=== PATIENT | female | born 1980 | race Caucasian/White ===

== ENCOUNTER 2017-01-02 11:59 | Emergency (ER) | payer MEDICAID, OTHER ==
[~2017-01-02] VITALS: Ht 170.2 cm; Wt 55.0 kg
[~2017-01-02 11:59] MED LIST: NAPR500 PO; NORE5TAB PO; ONDA4TAB7 PO; ORTH0.35 PO; PROT10TA PO
[2017-01-02 12:01] VITALS: BP 128/64; PULSE 118; RESP 24; TEMP 98.3; O2SAT 98
[2017-01-02 12:10] VITALS: BP 149/90; PULSE 110; RESP 16; O2SAT 98
[2017-01-02] MEDS ORDERED: SODIUM CHLOR 0.9% 1000 ML INJ 1,000 ML IV SCH (12:17)
[2017-01-02 12:20] VITALS: RESP 16; O2SAT 98
--- NOTE | 2017-01-02 12:24 | PD ---
HPI Chief Complaint: Abdominal Pain Time Seen by Provider: 12:06 Travel History International Travel<30 days: No Contact w/Intl Traveler<30days: No Traveled to known affect area: No History of Present Illness HPI 36yo F with PMH of guillain barre, endometriosis presents to the ED with c/o left sided abdominal pain for 3 days. States it radiates to periumbilical region. Had nausea but not vomiting. +Chills. Denies any fever, chest pain, sob, vomiting, vaginal discharge, vaginal bleeding, urinary complaints or diarrhea. Last BM was this morning, normal. PSH include appendectomy, laparoscopy, . PFSH Past Medical History Bipolar Disorder: Yes Anxiety: Yes Cardiovascular Problems: Yes (MVP) Diminished Hearing: No Gastrointestinal Disorders: Yes GERD: Yes Genitourinary: Yes (ENDOMETRIOSIS WITH ADHESIONS) Insomnia: Yes Kidney Stones: Yes Tetanus Vaccination: Unknown Influenza Vaccination: No ?: Not LMP: NOV 2016 : 4 Para: 2 : 2 Tubal Ligation: Yes Past Surgical History Abdominal Surgery: Yes (EXP LAP) Appendectomy: Yes Section: Yes (X2) Other Surgery: Yes (abd. LAPOROSCOPy/otomy ) Social History Alcohol Use: No Tobacco Use: Yes (1/2 PPD) Substance Use: Yes (marijuana) Allergies-Medications (Allergen,Severity, Reaction): Coded Allergies: Bactrim (Verified Allergy, Severe, Nausea/Vomiting, 01/02/17) Penicillin (Verified Allergy, Unknown, 01/02/17) Reported Meds & Prescriptions Reported Meds & Active Scripts Active Acetaminophen Extra Strength (Acetaminophen) 500 Mg Tab 500 Mg PO Q6H PRN Review of Systems Except as stated in HPI: all other systems reviewed are Neg Physical Exam Narrative GENERAL: 36yo F not in distress. SKIN: Warm and dry. HEAD: Atraumatic. Normocephalic. EYES: Pupils equal and round. No scleral icterus. No injection or drainage. ENT: No nasal bleeding or discharge. Mucous membranes pink and moist. NECK: Trachea midline. No JVD. CARDIOVASCULAR: Mildly tachycardic at 110bpm. RESPIRATORY: No accessory muscle use. Clear to auscultation. Breath sounds equal bilaterally. GASTROINTESTINAL: Abdomen soft, mild periumbilical and left periumbilical ttp. No rebound tenderness or guarding. MUSCULOSKELETAL: No obvious deformities. No clubbing. No cyanosis. No edema. NEUROLOGICAL: Awake and alert. No obvious cranial nerve deficits. Motor grossly within normal limits. Normal speech. PSYCHIATRIC: Appropriate mood and affect; insight and judgment normal. Data Data Last Documented VS Vital Signs Date Time Temp Pulse Resp B/P Pulse Ox O2 Delivery O2 Flow Rate FiO2 01/02/17 13:30 16 01/02/17 12:20 98 Room Air 01/02/17 12:10 110 149/90 01/02/17 12:01 98.3 Orders Complete Blood Count With Diff (01/02/17 12:17) Comprehensive Metabolic Panel (01/02/17 12:17) Lipase (01/02/17 12:17) Lactic Acid (01/02/17 12:17) Urinalysis - C+S If Indicated (01/02/17 12:17) Iv Access Insert/Monitor (01/02/17 12:17) Ecg Monitoring (01/02/17 12:17) Oximetry (01/02/17 12:17) Ondansetron Inj (Zofran Inj) (01/02/17 12:30) Sodium Chlor 0.9% 1000 Ml Inj (Ns 1000 M (01/02/17 12:17) Sodium Chloride 0.9% Flush (Ns Flush) (01/02/17 12:30) Ketorolac Inj (Toradol Inj) (01/02/17 12:30) Ed Urine Pregnancytest Poc (01/02/17 12:17) Bhcg Screen Qualitative (01/02/17 13:55) Ct Abd/Pel W Iv Contrast(Rout) (01/02/17 ) Iohexol 350 Inj (Omnipaque 350 Inj) (01/02/17 15:00) Labs Laboratory Tests Test 01/02/17 01/02/17 12:25 14:00 White Blood Count 9.6 TH/MM3 Red Blood Count 5.09 MIL/MM3 Hemoglobin 13.1 GM/DL Hematocrit 39.4 % Mean Corpuscular Volume 77.4 FL Mean Corpuscular Hemoglobin 25.7 PG Mean Corpuscular Hemoglobin 33.2 % Concent Red Cell Distribution Width 18.1 % Platelet Count 247 TH/MM3 Mean Platelet Volume 7.7 FL Neutrophils (%) (Auto) 67.9 % Lymphocytes (%) (Auto) 23.2 % Monocytes (%) (Auto) 6.2 % Eosinophils (%) (Auto) 1.9 % Basophils (%) (Auto) 0.8 % Neutrophils # (Auto) 6.6 TH/MM3 Lymphocytes # (Auto) 2.2 TH/MM3 Monocytes # (Auto) 0.6 TH/MM3 Eosinophils # (Auto) 0.2 TH/MM3 Basophils # (Auto) 0.1 TH/MM3 CBC Comment DIFF FINAL Differential Comment Sodium Level 139 MEQ/L Potassium Level 3.8 MEQ/L Chloride Level 109 MEQ/L Carbon Dioxide Level 21.2 MEQ/L Anion Gap 9 MEQ/L Blood Urea Nitrogen 9 MG/DL Creatinine 0.76 MG/DL Estimat Glomerular Filtration 87 ML/MIN Rate Random Glucose 76 MG/DL Lactic Acid Level 0.7 mmol/L Calcium Level 8.9 MG/DL Total Bilirubin 0.6 MG/DL Aspartate Amino Transf 16 U/L (AST/SGOT) Alanine Aminotransferase 21 U/L (ALT/SGPT) Alkaline Phosphatase 40 U/L Total Protein 8.1 GM/DL Albumin 4.6 GM/DL Lipase 143 U/L Beta HCG, Qualitative LESS THAN 1 MIU/ML Urine Color STRAW Urine Turbidity CLEAR Urine pH 6.5 Urine Specific Homer 1.005 Urine Protein NEG mg/dL Urine Glucose (UA) NEG mg/dL Urine Ketones NEG mg/dL Urine Occult Blood NEG Urine Nitrite NEG Urine Bilirubin NEG Urine Urobilinogen LESS THAN 2.0 MG/DL Urine Leukocyte Esterase NEG Urine Squamous Epithelial 1 /hpf Cells Microscopic Urinalysis Comment CULT NOT INDICATED MDM Medical Decision Making Medical Screen Exam Complete: Yes Emergency Medical Condition: Yes Interpretation(s) Laboratory Tests Test 01/02/17 01/02/17 12:25 14:00 White Blood Count 9.6 TH/MM3 (4.0-11.0) Red Blood Count 5.09 MIL/MM3 (4.00-5.30) Hemoglobin 13.1 GM/DL (11.6-15.3) Hematocrit 39.4 % (35.0-46.0) Mean Corpuscular Volume 77.4 FL (80.0-100.0) Mean Corpuscular Hemoglobin 25.7 PG (27.0-34.0) Mean Corpuscular Hemoglobin 33.2 % Concent (32.0-36.0) Red Cell Distribution Width 18.1 % (11.6-17.2) Platelet Count 247 TH/MM3 (150-450) Mean Platelet Volume 7.7 FL (7.0-11.0) Neutrophils (%) (Auto) 67.9 % (16.0-70.0) Lymphocytes (%) (Auto) 23.2 % (9.0-44.0) Monocytes (%) (Auto) 6.2 % (0.0-8.0) Eosinophils (%) (Auto) 1.9 % (0.0-4.0) Basophils (%) (Auto) 0.8 % (0.0-2.0) Neutrophils # (Auto) 6.6 TH/MM3 (1.8-7.7) Lymphocytes # (Auto) 2.2 TH/MM3 (1.0-4.8) Monocytes # (Auto) 0.6 TH/MM3 (0-0.9) Eosinophils # (Auto) 0.2 TH/MM3 (0-0.4) Basophils # (Auto) 0.1 TH/MM3 (0-0.2) CBC Comment DIFF FINAL Differential Comment Sodium Level 139 MEQ/L (136-145) Potassium Level 3.8 MEQ/L (3.5-5.1) Chloride Level 109 MEQ/L (98-107) Carbon Dioxide Level 21.2 MEQ/L (21.0-32.0) Anion Gap 9 MEQ/L (5-15) Blood Urea Nitrogen 9 MG/DL (7-18) Creatinine 0.76 MG/DL (0.50-1.00) Estimat Glomerular Filtration 87 ML/MIN (>89) Rate Random Glucose 76 MG/DL (74-106) Lactic Acid Level 0.7 mmol/L (0.4-2.0) Calcium Level 8.9 MG/DL (8.5-10.1) Total Bilirubin 0.6 MG/DL (0.2-1.0) Aspartate Amino Transf 16 U/L (15-37) (AST/SGOT) Alanine Aminotransferase 21 U/L (10-53) (ALT/SGPT) Alkaline Phosphatase 40 U/L (45-117) Total Protein 8.1 GM/DL (6.4-8.2) Albumin 4.6 GM/DL (3.4-5.0) Lipase 143 U/L (73-393) Beta HCG, Qualitative LESS THAN 1 MIU/ML (0-5) Urine Color STRAW (YELLW/STRAW) Urine Turbidity CLEAR (CLEAR) Urine pH 6.5 (5.0-8.5) Urine Specific Homer 1.005 (1.002-1.035) Urine Protein NEG mg/dL (NEG-TRACE) Urine Glucose (UA) NEG mg/dL (NEG) Urine Ketones NEG mg/dL (NEG) Urine Occult Blood NEG (NEG) Urine Nitrite NEG (NEG) Urine Bilirubin NEG (NEG) Urine Urobilinogen LESS THAN 2.0 MG/DL (LESS THAN 2.0) Urine Leukocyte Esterase NEG (NEG) Urine Squamous Epithelial 1 /hpf (0-5) Cells Microscopic Urinalysis Comment CULT NOT INDICATED Last Impressions Abdomen/Pelvis CT 01/02/17 0000 Signed Impressions: Service Date/Time: Wednesday, January 02, 2017 14:50 - CONCLUSION: 1. Small amount of free fluid in the pelvis. Exam otherwise unremarkable. No bowel obstruction. No evidence for obstructive uropathy. Winston Angel MD Differential Diagnosis UTI vs. colitis vs. obstruction vs. gastritis vs. pancreatitis Narrative Course 36yo F with abdominal pain for 3 days. Pt is very anxious appearing, initially mildly tachycardic at 110bpm. Pt given NS IVF and HR is now 80s. Labs reviewed , no leukocytosis. Normal lactic acid. Liver enzyme and creatinine normal. bHCG negative. UA negative. CTabd/pelvis showed small amount of free fluid in the pelvis. Exam otherwise unremarkable. No bowel obstruction. No evidence of obstructive uropathy. Pt is resting comfortably and when I informed her of her negative work up her boyfriend became very upset and states she cant go home. Abdomen is soft, no rebound tenderness or guarding. Return precautions given. Pt has not vomited in the ED. I do not feel that there is an emergency that she needs to stay in the hospital for and that she can have an outpatient follow up in clinic for further work up if necessary. Pt has insurance so I cannot do mandatory referral. Pt instructed to follow up with PCP. Diagnosis Primary Impression: Abdominal pain Qualified Code: R10.84 - Generalized abdominal pain Patient Instructions: General Instructions Departure Forms: Tests/Procedures Additional Instructions: Please follow up with PMD in 3-7 days. Return to ED if symptoms worsen. Med/Other Pt SpecificInfo: Prescription(s) given Scripts Acetaminophen (Acetaminophen Extra Strength)500 Mg [id number] Mg PO Q6H PRN (PAIN SCALE 1 TO 4) #20 TAB Ref 0 Prov:Kyleigh Saeed DO 01/02/17 Disposition: 01 DISCHARGE HOME Condition: Stable Kyleigh Saeed DO Jan 02, 2017 12:24 Kyleigh Saeed DO Jan 02, 2017 12:24
[2017-01-02] MEDS ORDERED: SODIUM CHLORIDE 0.9% FLUSH 5 ML FLUSH IVF PRN (12:30)
[2017-01-02] MEDS ORDERED: KETOROLAC TROMETHAMINE 30 MG/ML (IVP) VIAL IVP ONE (12:30)
[2017-01-02] MEDS ORDERED: ONDANSETRON HCL 4 MG/2 ML VIAL IVP ONE (12:30)
[2017-01-02 12:46] LABS: AUTOMATED NEUTROPHIL # 6.6 TH/MM3 (1.8-7.7); BASOPHIL # 0.1 TH/MM3 (0-0.2); BASOPHIL % 0.8 % (0.0-2.0); EOSINOPHIL # 0.2 TH/MM3 (0-0.4); EOSINOPHIL % 1.9 % (0.0-4.0); HEMATOCRIT 39.4 % (35.0-46.0); HEMO FLAGS DIFF FINAL; LYMPH % 23.2 % (9.0-44.0); LYMPHOCYTE # 2.2 TH/MM3 (1.0-4.8); MEAN CELL VOLUME 77.4 FL (80.0-100.0); MEAN CORPUSCULAR HEMOGLOBIN 25.7 PG (27.0-34.0); MEAN CORPUSCULAR HGB CONC 33.2 % (32.0-36.0); MONO % 6.2 % (0.0-8.0); NEUT % 67.9 % (16.0-70.0); PLATELET COUNT 247 TH/MM3 (150-450); RED BLOOD COUNT 5.09 MIL/MM3 (4.00-5.30); RED CELL DISTRIBUTION WIDTH 18.1 % (11.6-17.2); WHITE BLOOD COUNT 9.6 TH/MM3 (4.0-11.0)
[2017-01-02 13:06] LABS: ALT (GPT) 21 U/L (10-53); ANION GAP 9 MEQ/L (5-15); AST (GOT) 16 U/L (15-37); BICARBONATE 21.2 MEQ/L (21.0-32.0); BLOOD UREA NITROGEN 9 MG/DL (7-18); CHLORIDE 109 MEQ/L (98-107); GLOMERULAR FILTRATION RATE 87 ML/MIN (>89); POTASSIUM 3.8 MEQ/L (3.5-5.1); SODIUM (NA) 139 MEQ/L (136-145)
[2017-01-02 13:08] LABS: ALKALINE PHOSPHATASE 40 U/L (45-117); TOTAL BILIRUBIN ADULT 0.6 MG/DL (0.2-1.0)
[2017-01-02 13:30] VITALS: RESP 16
[2017-01-02] MEDS ORDERED: IOHEXOL 350 MG/ML 10 ML VIAL (for RAD DIAG) IV ONE (15:00)
[2017-01-02 15:01] LABS: BLOOD, URINE NEG (NEG); GLUCOSE,URINE NEG (NEG); KETONE, URINE NEG (NEG); NITRITE,URINE NEG (NEG); PH, URINE 6.5 (5.0-8.5); SQUAMOUS EPITHELIAL CELL URINE 1 /hpf (0-5); URINE COLOR STRAW (YELLW/STRAW)
[2017-01-02 15:02] LABS: COMMENT (UR) CULT NOT INDICATED; CULTURE IF INDICATED CULT NOT INDICATED
--- NOTE | 2017-01-02 15:20 | RADRPT ---
EXAM DATE/TIME: 01/02/2017 14:50 [facility] COMPARISON: No previous studies available for comparison. INDICATIONS : Abdomen pain for three days. IV CONTRAST: 89 cc Omnipaque 350 (iohexol) IV ORAL CONTRAST: No oral contrast ingested. RADIATION DOSE: 4.51 CTDIvol (mGy) MEDICAL HISTORY : Cardiovascular disease. Gastroesophageal reflux disease. Renal calculi.Guillian Haysi syndrome. SURGICAL HISTORY : Appendectomy. Tubal ligation. section. ENCOUNTER: Initial ACUITY: 3 days PAIN SCALE: 5/10 LOCATION: Left abdomen TECHNIQUE: Volumetric scanning of the abdomen and pelvis was performed. Using automated exposure control and ad justment of the mA and/or kV according to patient size, radiation dose was kept as low as reasonably achievable to obtain optimal diagnostic quality images. FINDINGS: Lung bases are clear. No acute findings in the liver, spleen, adrenals, kidneys and pancreas. There is a small amount of free fluid in the pelvis. No bowel obstruction. No adenopathy. Tubal ligat ion clips present bilaterally. There is history of appendectomy. CONCLUSION: 1. Small amount of free fluid in the pelvis. Exam otherwise unremarkable. No bowel obstruction. No ev idence for obstructive uropathy. Winston Angel MD on January 02, 2017 at 15:15 Board Certified Radiologist. This report was verified electronically.
[2017-01-02] MEDS ORDERED: ACET500T36 PO (16:16)
== END 2017-01-02 17:09 | disposition home or self-care (01) ==
LOC: NEPA 11:59
DX: R10.84 Generalized abdominal pain (principal); G61.0 Guillain-Barre syndrome; N80.9 Endometriosis, unspecified; F17.210 Nicotine dependence, cigarettes, uncomplicated; F12.90 Cannabis use, unspecified, uncomplicated
CPT/HCPCS: 74177; 80053; 81001; 83605; 83690; 84703; 85025; 96361; 96374; 96375; 99284; J1885; J2405; J7030; Q9967